=== PATIENT | male | born 2000 | race Caucasian/White ===

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

== ENCOUNTER → 2022-03-27 | Outpatient (CLI) | payer BC ==
--- NOTE | 2022-03-27 08:37 | CT ---
EXAMINATION TYPE: CT brain wo con DATE OF EXAM: 03/27/2022 COMPARISON: None INDICATION: BRITO DLP: 1189 mGycm, Automated exposure control for dose reduction was used. CONTRAST: None CT of the brain is performed utilizing 3 mm thick sections through the posterior fossa and 3 mm thick sections through the remaining calvarium. Study is performed within 24 hours of arrival to the hosp ital. No abnormal hyperdensity is present to suggest an acute intracranial hemorrhage. No mass lesion is evident. No acute infarcts are evident. Ventricles and sulci are appropriate for the patient age. Paranasal sinuses and mastoid air cells within the [id number] are clear. IMPRESSIONS: 1. No acute intracranial process. Follow-up MRI can be performed as clinically indicated.
== END | disposition home or self-care (01) ==
LOC: RADCTMAIN 07:52
PROVIDERS: ATTEND Family Medicine
DX: G44.89 Other headache syndrome (principal)
CPT/HCPCS: 70450

== ENCOUNTER → 2022-07-09 | Outpatient (CLI) | payer BC, OTHER ==
--- NOTE | 2022-07-10 09:55 | MR ---
EXAMINATION TYPE: MR knee RT wo con DATE OF EXAM: 07/09/2022 COMPARISON: None HISTORY: 21-year-old male Right inner knee pain, locking and swelling due to fall at work that bent l eg backwards. TECHNIQUE: Multiplanar, multisequence imaging of the right knee is performed without IV contrast. FINDINGS: The ACL, PCL, and MCL appear intact. Focal edema in the soft tissues posteriorly overlying the popliteus muscle extending from the head of the fibula, extending to the upper peroneal compartment, and along the popliteus myotendinous juncti on. There is mild edema at the fibular head and more intense focal edema along the lateral tibial plateau underlying the proximal tibiofibular joint. Given the degree of edema, subtle underlying cortical fr acture would be difficult to exclude. The LCL proper, conjoined tendon, and iliotibial band insertion appear intact. There is a small focus of osseous edema along the posterior lip of the medial tibial plateau. Tricompartment articular cartilage volumes are maintained. There is some degenerative signal at the j unction of the posterior horn and body of the medial meniscus but without discrete meniscal tear. Normal popliteal artery anatomy and muscle bulk. Small joint effusion. No Rosas's cyst. There is mild insertional quadriceps and proximal patellar tendinosis noted. No suspicious bone marrow replacement. IMPRESSION: 1. Pronounced focal bone marrow edema/bone bruise at the periphery of the lateral tibial plateau unde rlying the proximal tibiofibular joint. A subtle nondisplaced cortical fracture here is difficult to exclude. Query any direct impact to this location. 2. Corresponding mild edema at the tip of the fibular head and adjacent soft tissue edema extending s uperficial to the popliteus muscle, along the popliteus myotendinous junction, and within the upper p eroneal compartment. Given the location of some of this edema, correlate to exclude a posterolateral corner injury. Alternatively, reactive soft tissue edema relating to the bone bruise is possible as w ell as the possibility of muscle strains. 3. Additional small focal bone marrow edema measuring 9 mm involving the posterior lip of the medial tibial plateau. Possible minimal subchondral impaction injury/bone bruise. 4. Mild insertional quadriceps and proximal patellar tendinosis. Small joint effusion.
== END | disposition home or self-care (01) ==
LOC: RADMRIMAIN 12:24
PROVIDERS: ATTEND Orthopaedic Surgery
DX: M25.461 Effusion, right knee (principal); M23.91 Unspecified internal derangement of right knee; M25.561 Pain in right knee; R60.0 Localized edema

== ENCOUNTER 2022-10-28 07:25 | Emergency (ER) | payer BC ==
[2022-10-28 07:33] VITALS: TEMP 97.7
[2022-10-28] MEDS ORDERED: MECLIZINE 12.5 MG TAB PO STA (08:03)
[2022-10-28] MEDS ORDERED: SODIUM CHLORIDE 0.9% 1,000 ML IV STA (08:03)
[2022-10-28] MEDS ORDERED: KETOROLAC 15 MG/ML 1 ML VIAL IVP STA (08:04)
[2022-10-28] MEDS ORDERED: ONDANSETRON 4 MG/2 ML VIAL IVP STA (08:04)
--- NOTE | 2022-10-28 08:31 | ED ---
Chest Pain HPI - General Chief Complaint: Chest Pain Stated Complaint: Chest Pain, Headache Time Seen by Provider: 10/28/22 07:40 Source: patient Mode of arrival: ambulatory Limitations: no limitations - History of Present Illness Initial Comments: 21-year-old male presents to emergency room with multiple complaints. States that he has had room spinning sensation, chest pressure and nausea since yesterday. He feels as if the room is moving around him especially when he sits up. He also describes a sharp shooting chest pressure located in the epigastric region. He has associated nausea and had one episode of vomiting this morning. Denies sick contacts or similar symptoms. No fevers, chills or cough. Has mild shortness of breath. No family history of cardiac disease. No lower externally swelling. No ripping or tearing cessation was back. He admits to a mild headache. No known head trauma. No unilateral numbness or weakness. No other alleviating, precipitating or modifying factors - Related Data Previous Rx's Medication Instructions Recorded Meclizine HCl [Antivert] 25 mg PO TID PRN #15 tab 10/28/22 Ondansetron Odt [Zofran Odt] 4 mg PO Q8HR PRN #15 tab 10/28/22 Allergies Allergy/AdvReac Type Severity Reaction Status Date / Time No Known Allergies Allergy Verified 10/28/22 08:20 Review of Systems ROS Statement: Those systems with pertinent positive or pertinent negative responses have been documented in the HPI. ROS Other: All systems not noted in ROS Statement are negative. EKG Findings - EKG Comments: EKG Findings:: EKG demonstrates sinus rhythm with a rate of 64. OR interval 159. QRS 92. QTC of 395. J-point elevation in inferior, anterior and lateral leads consistent with early re-pole. No reciprocal changes Past Medical History Past Medical History: No Reported History History of Any Multi-Drug Resistant Organisms: None Reported Past Surgical History: No Surgical Hx Reported Past Psychological History: Depression Smoking Status: Never smoker Past Alcohol Use History: None Reported Past Drug Use History: None Reported General Exam Limitations: no limitations General appearance: alert, in no apparent distress Head exam: Present: atraumatic, normocephalic, normal inspection Eye exam: Present: normal appearance, PERRL, EOMI. Absent: scleral icterus, conjunctival injection, periorbital swelling ENT exam: Present: normal exam, mucous membranes moist Neck exam: Present: normal inspection. Absent: tenderness, meningismus, lymphadenopathy Respiratory exam: Present: normal lung sounds bilaterally. Absent: respiratory distress, wheezes, rales, rhonchi, stridor Cardiovascular Exam: Present: regular rate, normal rhythm, normal heart sounds. Absent: systolic murmur, diastolic murmur, rubs, gallop, clicks GI/Abdominal exam: Present: soft, normal bowel sounds. Absent: distended, tenderness, guarding, rebound, rigid Extremities exam: Present: normal inspection, full ROM, normal capillary refill. Absent: tenderness, pedal edema, joint swelling, calf tenderness Back exam: Present: normal inspection Neurological exam: Present: alert, oriented X3, CN II-XII intact Psychiatric exam: Present: normal affect, normal mood Skin exam: Present: warm, dry, intact, normal color. Absent: rash Course Vital Signs 10/28/22 10/28/22 07:30 09:00 Temperature 97.7 F Pulse Rate 74 60 Respiratory 16 18 Rate Blood Pressure 123/74 132/92 O2 Sat by Pulse 98 98 Oximetry Chest Pain MDM - MDM Was pt. sent in by a medical professional or institution (, PA, CATERPILLAR OPERATOR, urgent care, hospital, or detention...) When possible be specific @ -No Did you speak to anyone other than the patient for history (EMS, parent, family, police, friend...)? What history was obtained from this source @ -No Did you review nursing and triage notes (agree or disagree)? Why? @ -I reviewed and agree with nursing and triage notes Were old charts reviewed (outside hosp., previous admission, EMS record, old EKG, old radiological studies, urgent care reports/EKG's, detention records)? Report findings @ -No Differential Diagnosis (chest pain, altered mental status, abdominal pain women, abdominal pain men, vaginal bleeding, weakness, fever, dyspnea, syncope, headache, dizziness, GI bleed, back pain, seizure, CVA, palpatations, mental health, musculoskeletal)? @ -acs, nstemi, stemi, chest wall pain/strain, angina, cornonary vasospasm, viral syndrome, vertigo, dehydration EKG interpreted by me (3pts min.). @ -The EKG was interpreted by myself - please see EKG heading for further information X-rays interpreted by me (1pt min.). @ -yes, interpreted by myself CT interpreted by me (1pt min.). @ -None done U/S interpreted by me (1pt. min.). @ -None done What testing was considered but not performed or refused? (CT, X-rays, U/S, labs)? Why? @ -None What meds were considered but not given or refused? Why? @ -None Did you discuss the management of the patient with other professionals (professionals i.e. , PA, CATERPILLAR OPERATOR, lab, RT, psych nurse, social services coordinator, automatic washer mechanic, teacher, special police officer, piano case and bench assembler)? Give summary @ -No Was smoking cessation discussed for >3mins.? @ -No Was critical care preformed (if so, how long)? @ -No Were there social determinants of health that impacted care today? How? (Homelessness, low income, unemployed, alcoholism, drug addiction, trans portation, low edu. Level, literacy, decrease access to med. care, long term, rehab)? @ -No Was there de-escalation of care discussed even if they declined (Discuss DNR or withdrawal of care, Hospice)? DNR status @ -No What co-morbidities impacted this encounter? (DM, HTN, Smoking, COPD, CAD, Cancer, CVA, ARF, Chemo, Hep., AIDS, mental health diagnosis, sleep apnea, morbid obesity)? @ -none Was patient admitted / discharged? Hospital course, mention meds given and route, prescriptions, significant lab abnormalities, going to OR and other pertinent info. @ -Upon arrival patient is placed into room 4. History and physical exam was performed. IV access established. Patient was given a liter bolus of normal saline, 4 mg of Zofran and 25 mg of meclizine. Patient additionally given 15 mg of Toradol. Laboratory studies are conducted and reviewed. Troponin negative. D-dimer negative. Chest x-ray demonstrates no acute process. Patient reevaluated and reports to improvement in his symptoms. He'll be discharged home at this time and instructed follow up with his primary care doctor to 4 days. May need repeat or further imaging if symptoms persist such as an echo and Holter monitor. He will be prescribed meclizine and Zofran. He is to return for any new or worsening symptoms. Patient was agreeable and discharged home and so condition Undiagnosed new problem with uncertain prognosis? @ -yes Drug Therapy requiring intensive monitoring for toxicity (Heparin, Nitro, Insulin, Cardizem)? @ -No Were any procedures done? @ -No Diagnosis/symptom? @ -acute vertigo, acute cephalgia, acute chest pain, acute nausea with vomiting Acute, or Chronic, or Acute on Chronic? @ -acute Uncomplicated (without systemic symptoms) or Complicated (systemic symptoms)? @ -complicated Side effects of treatment? @ -allergic reaction Exacerbation, Progression, or Severe Exacerbation? @ -No Poses a threat to life or bodily function? How? (Chest pain, [place], [place], pneumonia, PE, COPD, DKA, ARF, appy, cholecystitis, CVA, Diverticulitis, Homicidal, Suicidal, threat to staff... and all critical care pts) @ -yes- chest pain can indicated underlying cardiac or pulmonary disease which could be life threatening Disposition Clinical Impression: Chest pain, Vertigo, Vomiting Disposition: HOME SELF-CARE Condition: Stable Instructions (If sedation given, give patient instructions): Chest Pain (ED) Additional Instructions: You have been prescribed 2 medications. 1 for dizziness and 1 for nausea. These medications should only be used for the next 48-72 hours and if you're s till having symptoms you need to be reevaluated. Please follow-up with your primary care doctor in 2-4 days. You may need repeat or additional studies to include echo, Holter monitor or MRI. Return for any new or worsening symptoms Prescriptions: Meclizine HCl [Antivert] 25 mg PO TID PRN #15 tab PRN Reason: Vertigo Ondansetron Odt [Zofran Odt] 4 mg PO Q8HR PRN #15 tab PRN Reason: Nausea Is patient prescribed a controlled substance at d/c from ED?: No Referrals: Tony Hicks DO [Primary Care Provider] - 1-2 days Time of Disposition: 09:46
[2022-10-28 08:32] LABS: Basophils % (A) 0 %; Eosinophils # (A) 0.1 k/uL (0-0.7); Eosinophils % (A) 2 %; HCT 39.4 % (39.0-53.0); HGB 13.6 gm/dL (13.0-17.5); Lymphocytes # (A) 2.4 k/uL (1.0-4.8); Lymphocytes % (A) 37 %; MCH 28.5 pg (25.0-35.0); MCHC 34.5 g/dL (31.0-37.0); MCV 82.5 fL (80.0-100.0); Mean Platelet Volume 8.3; Monocytes # (A) 0.3 k/uL (0-1.0); Monocytes % (A) 5 %; Neutrophils # (A) 3.3 k/uL (1.3-7.7); Neutrophils % (A) 52 %; Platelet Count 165 k/uL (150-450); RBC 4.78 m/uL (4.30-5.90); RDW 13.5 % (11.5-15.5); WBC 6.4 k/uL (4.0-11.0)
--- NOTE | 2022-10-28 08:39 | XR ---
EXAMINATION TYPE: XR chest 2V DATE OF EXAM: 10/28/2022 COMPARISON: None INDICATION: Chest pain TECHNIQUE: Frontal and lateral views of the chest are obtained. FINDINGS: The heart size is normal. The pulmonary vasculature is normal. The lungs are clear. IMPRESSION: 1. No acute pulmonary process.
[2022-10-28 08:52] LABS: ALT 36 U/L (4-49); AST 30 U/L (17-59); African American GFR (CKD) >90 (>60 ml/min/1.73 sqM); Albumin 4.4 g/dL (3.5-5.0); Alkaline Phosphatase 67 U/L (38-126); Anion Gap 11 mmol/L; Blood Urea Nitrogen 20 mg/dL (9-20); Calcium 9.2 mg/dL (8.4-10.2); Carbon Dioxide 23 mmol/L (22-30); Chloride 107 mmol/L (98-107); Glucose 106 mg/dL (74-99); Lipase 203 U/L (23-300); Non-African American GFR(CKD) >90 (>60 ml/min/1.73 sqM); Potassium 4.5 mmol/L (3.5-5.1); Sodium 141 mmol/L (137-145); Total Bilirubin 1.1 mg/dL (0.2-1.3); Total Protein 7.3 g/dL (6.3-8.2)
[2022-10-28 09:00] LABS: Partial Thromboplastin Time 25.9 sec (22.0-30.0); Prothrombin Time 10.8 sec (9.0-12.0)
[2022-10-28 09:22] VITALS: BP 132/92; PULSE 60; RESP 18
== END 2022-10-28 10:02 | disposition home or self-care (01) ==
LOC: EC 07:25
DX: R07.89 Other chest pain (principal); R42 Dizziness and giddiness; R11.10 Vomiting, unspecified; Z86.59 Personal history of other mental and behavioral disorders
CPT/HCPCS: 99285 ×2; 96374 ×2; 96375 ×2; 96361 ×2; 36415; 93005; 85379; 80053; 83690; 83735; 84484; 85025; 85610; 85730; 71046; J2405; J1885